=== PATIENT | female | born 1990 | race Caucasian/White ===

== ENCOUNTER 2016-10-17 07:08 | Inpatient (IN) | payer OTHER ==
[2016-10-17] VITALS (14 sets, daily range): BP systolic 106–161; BP diastolic 65–88
[~2016-10-17 07:08] MED LIST: ENDOCET 5-3251 EACH PO; IBUPROFEN800 MG PO; PRENATAL TABLE1 EAC3 PO; TYLENOL REGULA325 MG PO
[2016-10-17 09:20] LABS: EOSINOPHIL (%) 0.6 % (0-5); EOSINOPHIL COUNT 0.1 K/uL (0-0.3); HEMATOCRIT 37.5 % (36.0-46.0); IMMATURE GRANULOCYTE (%) 0.7 % (0.0-0.7); IMMATURE GRANULOCYTE COUNT 0.1 K/uL; INSTRUMENT ABS NEUTROPHIL CT 8.3 K/uL; LYMPHOCYTE COUNT 1.7 K/uL (1.0-2.8); MCH 28.6 PG (29.0-34.0); MCHC 33.1 G/DL (30.0-36.0); MCV 86.6 FL (83-99); MEAN PLAT.VOLUME 10.6 uM^3 (9.5-12.4); MONOCYTE (%) 6.2 % (3-12); MONOCYTE COUNT 0.7 K/uL (0-0.8); NEUTROPHIL (%) 76.3 % (45-76); NEUTROPHIL COUNT 8.3 K/uL (1.8-6.4); PLATELET COUNT 209 K/uL (156-360); RBC DIS.WIDTH-CV 12.8 % (11.8-14.6); RED BLOOD COUNT 4.33 M/uL (3.80-5.20); WHITE BLOOD COUNT 10.8 K/uL (4.1-10.2)
[2016-10-17] MEDS ORDERED: PRENATAL COMPL1 EACH PO (17:50)
[2016-10-17] MEDS ORDERED: IBUPROFEN800 MG PO (19:27)
[2016-10-18 02:24] VITALS: BP 127/75
[2016-10-18 07:40] VITALS: BP 138/71
[2016-10-18 15:20] VITALS: BP 118/64
[2016-10-18 23:32] VITALS: BP 125/73
== END 2016-10-19 13:31 | disposition home health service (06) | DRG 775 ==
LOC: LDRP-OP 07:08 → 2WEST 07:09 → LDRP-OP 19:51 → 2WEST 10-19 13:31 → LDRP-OP 11-10 16:47
PROVIDERS: Nurse Practitioner
PROC: 10E0XZZ Delivery of Products of Conception, External Approach (ICD-10-PCS; principal; 2016-10-17)
PROC: 3E0P7GC Introduction of Other Therapeutic Substance into Female Reproductive, Via Natural or Artificial Opening (ICD-10-PCS; 2016-10-17)
PROC: 10907ZC Drainage of Amniotic Fluid, Therapeutic from Products of Conception, Via Natural or Artificial Opening (ICD-10-PCS; 2016-10-17)
PROC: 3E0S3BZ Introduction of Anesthetic Agent into Epidural Space, Percutaneous Approach (ICD-10-PCS; 2016-10-17)
DX: O48.0 Post-term pregnancy (principal); F33.9 Major depressive disorder, recurrent, unspecified; O99.354 Diseases of the nervous system complicating childbirth; Z37.0 Single live birth; O99.345 Other mental disorders complicating the puerperium; G43.909 Migraine, unspecified, not intractable, without status migrainosus; Z3A.40 40 weeks gestation of pregnancy; F12.90 Cannabis use, unspecified, uncomplicated; Z87.891 Personal history of nicotine dependence
CPT/HCPCS: 85025; C1755; J1050; J2405; J3010; J7120